=== PATIENT | female | born 1995 | race African-American/Black ===

== ENCOUNTER 2017-03-28 11:35 | Emergency (ER) | payer OTHER ==
[~2017-03-28] VITALS: Ht 152.4 cm; Wt 74.1 kg
[2017-03-28 11:37] VITALS: BP 125/73; PULSE 106; RESP 17; TEMP 99.2; O2SAT 99
[2017-03-28] MEDS ORDERED: IBUPROFEN 800 MG TAB PO ONE (12:00)
--- NOTE | 2017-03-28 12:25 | PD ---
HPI Chief Complaint: Respiratory Symptoms Time Seen by Provider: 12:15 Travel History International Travel<30 days: No Contact w/Intl Traveler<30days: No Traveled to known affect area: No History of Present Illness HPI Patient is a 21-year-old female presenting to emergency evaluation of body aches , cough, sneezing and runny stuffy nose. She states this morning when she was blowing her nose she noticed red mucus when she coughed. She also reports subjective fevers and chills, she denies any nausea, vomiting, chest pain, shortness of breath. She denies a significant past medical history. She has not taken anything to alleviate her symptoms. PFSH Past Medical History Cardiovascular Problems: Yes (congenital heart murmur ) Diminished Hearing: No Immunizations Current: Yes Tetanus Vaccination: < 5 Years Influenza Vaccination: No ?: Not LMP: 03/28/17 Menopausal: No : 1 Para: 0 Miscarriage: 1 Past Surgical History Surgical History: No Previous Surgery Social History Alcohol Use: Yes (ocassionally) Tobacco Use: No (pt denies) Substance Use: No (pt denies) Allergies-Medications (Allergen,Severity, Reaction): Coded Allergies: No Known Allergies (Verified , 03/28/17) Reported Meds & Prescriptions Reported Meds & Active Scripts Active No Active Prescriptions or Reported Medications Review of Systems Except as stated in HPI: all other systems reviewed are Neg General / Constitutional: Positive: Fever (subjective), Chills HENT: Positive: Sore Throat, Rhinitis, Rhinorrhea, Congestion Cardiovascular: No: Chest Pain or Discomfort Respiratory: Positive: Cough, Sneezing, No: Shortness of Breath, Wheezing, Pleuritic Pain Gastrointestinal: No: Nausea, Vomiting, Diarrhea, Abdominal Pain Musculoskeletal: Positive: Myalgias Physical Exam Narrative GENERAL: Well-developed, well-nourished, alert female. Resting comfortably in no acute distress. SKIN: Focused skin assessment warm/dry. HEAD: Atraumatic. Normocephalic. EYES: Pupils equal and round. No scleral icterus. No injection or drainage. ENT: No nasal bleeding or discharge. Mucous membranes pink and moist. Airway is patent NECK: Trachea midline. No JVD. CARDIOVASCULAR: Regular rate and rhythm. No murmur appreciated. RESPIRATORY: No accessory muscle use. Clear to auscultation. Breath sounds equal bilaterally. GASTROINTESTINAL: Abdomen soft, non-tender, nondistended. Hepatic and splenic margins not palpable. MUSCULOSKELETAL: No obvious deformities. No clubbing. No cyanosis. No edema. NEUROLOGICAL: Awake and alert. No obvious cranial nerve deficits. Motor grossly within normal limits. Normal speech. PSYCHIATRIC: Appropriate mood and affect; insight and judgment normal. Data Data Last Documented VS Vital Signs Date Time Temp Pulse Resp B/P Pulse Ox O2 Delivery O2 Flow Rate FiO2 03/28/17 11:53 98 18 100 Room Air 03/28/17 11:37 99.2 125/73 Orders Influenzae A/B Antigen (03/28/17 11:59) Ibuprofen (Motrin) (03/28/17 12:00) MDM Medical Decision Making Medical Screen Exam Complete: Yes Emergency Medical Condition: Yes Interpretation(s) Vital Signs Date Time Temp Pulse Resp B/P Pulse Ox O2 Delivery O2 Flow Rate FiO2 03/28/17 11:53 98 18 100 Room Air 03/28/17 11:37 99.2 106 17 125/73 99 Differential Diagnosis Influenza versus viral syndrome versus URI versus bronchitis versus other Narrative Course Patient's 21-year-old female presenting to emergency evaluation of cold symptoms that started approximately 24 hours ago. Patient appears nontoxic, she is mildly tachycardic with a slight elevation in her temperature. Patient will be given ibuprofen now, we'll obtain influenza screen. Influenza is negative Patient's heart rate was reassessed, at 98. Patient was encouraged to continue symptomatic management. She was advised to follow-up with her primary care provider Dr. Richardson. She was advised to return to emergency department immediately for any new or worsening symptoms. Patient verbalized understanding of instructions. Patient stable for discharge. Diagnosis Primary Impression: Viral URI Referrals: Melody Richardson MD 2 days Patient Instructions: General Instructions, Upper Respiratory Infection (ED) Additional Instructions: Follow-up with your primary doctor Continue symptom management Return to emergency department for any new or worsening symptoms Med/Other Pt SpecificInfo: Prescription(s) given Scripts Fluticasone Nasal [place] 50 Mcg/Act [id number] Mcg EACH NARE DAILY #1 BOTTLE Ref 0 50 mcg/spray Prov:Chantale Palacio 03/28/17 Ibuprofen 800 Mg [id number] Mg PO Q6HR PRN (PAIN) #40 TAB Ref 0 Prov:Chantale Palacio 03/28/17 Disposition: 01 DISCHARGE HOME Condition: Stable Chantale Palacio Mar 28, 2017 12:25
[2017-03-28] MEDS ORDERED: FLUT50SP EACH NARE (13:06)
[2017-03-28] MEDS ORDERED: IBUP800T23 PO (13:06)
[2017-03-28 13:08] VITALS: RESP 17
[2017-03-28 13:12] VITALS: BP 116/78; TEMP 97.8
== END 2017-03-28 13:13 | disposition home or self-care (01) ==
LOC: NEPD 11:35
DX: J06.9 Acute upper respiratory infection, unspecified (principal); B97.89 Other viral agents as the cause of diseases classified elsewhere; R00.0 Tachycardia, unspecified; R05 Cough; M79.1 Myalgia; R50.9 Fever, unspecified; Z86.79 Personal history of other diseases of the circulatory system
CPT/HCPCS: 87804; 99283

== ENCOUNTER 2017-05-18 17:17 | Emergency (ER) | payer OTHER ==
[~2017-05-18] VITALS: Ht 152.4 cm; Wt 77.3 kg
[~2017-05-18 17:17] MED LIST: FLUT50SP EACH NARE; IBUP800T23 PO
[2017-05-18 17:32] VITALS: BP 131/72; PULSE 100; RESP 16; TEMP 98; O2SAT 100
[2017-05-18] MEDS ORDERED: SODIUM CHLOR 0.9% 1000 ML INJ 1,000 ML IV ONE (18:45)
[2017-05-18] MEDS ORDERED: ONDANSETRON HCL 4 MG/2 ML VIAL IV PUSH ONE (18:45)
--- NOTE | 2017-05-18 18:52 | PD ---
HPI Chief Complaint: GI Complaint Time Seen by Provider: 18:42 Travel History International Travel<30 days: No Contact w/Intl Traveler<30days: No Traveled to known affect area: No History of Present Illness HPI This 21-year-old female says she's had loss of appetite for a few days. She's had some nausea and she has vomited once. She thinks she is due for her period but she says she doesn't pay a lot of attention to it. She has been once before and says she feels like this at that time. There has been no vaginal bleeding or abdominal pain [facility] Past Medical History Medical History: Denies Significant Hx Heart Rhythm Problems: Yes (HT MURMUR) Cardiovascular Problems: Yes (congenital heart murmur ) Diminished Hearing: No Immunizations Current: Yes Tetanus Vaccination: < 5 Years Influenza Vaccination: No ?: Unknown LMP: 04/26/17 Menopausal: No : 1 Para: 0 Miscarriage: 1 Past Surgical History Surgical History: No Previous Surgery Social History Alcohol Use: Yes (ocassionally) Tobacco Use: No (pt denies) Substance Use: No (pt denies) Allergies-Medications (Allergen,Severity, Reaction): Coded Allergies: No Known Allergies (Verified , 05/18/17) Reported Meds & Prescriptions Reported Meds & Active Scripts Active No Active Prescriptions or Reported Medications Review of Systems General / Constitutional: No: Fever, Chills Eyes: No: Diploplia HENT: No: Headaches Cardiovascular: No: Chest Pain or Discomfort, Palpitations Respiratory: No: Shortness of Breath Gastrointestinal: Positive: Nausea, Vomiting, Loss of Appetite Genitourinary: No: Urgency, Pelvic Pain Musculoskeletal: No: Myalgias Skin: No Rash, No Itching Neurologic: No: Weakness, Dizziness Endocrine: No: Heat Intolerance, Cold Intolerance Hematologic/Lymphatic: No: Easy Bruising Physical Exam Narrative GENERAL: Well-developed female SKIN: Focused skin assessment warm/dry. HEAD: Atraumatic. Normocephalic. EYES: Pupils equal and round. No scleral icterus. No injection or drainage. ENT: No nasal bleeding or discharge. Mucous membranes pink and moist. NECK: Trachea midline. No JVD. CARDIOVASCULAR: Regular rate and rhythm. No murmur appreciated. RESPIRATORY: No accessory muscle use. Clear to auscultation. Breath sounds equal bilaterally. GASTROINTESTINAL: Abdomen soft, non-tender, nondistended. Hepatic and splenic margins not palpable. MUSCULOSKELETAL: No obvious deformities. No clubbing. No cyanosis. No edema. NEUROLOGICAL: Awake and alert. No obvious cranial nerve deficits. Motor grossly within normal limits. Normal speech. PSYCHIATRIC: Appropriate mood and affect; insight and judgment normal. Data Data Last Documented VS Vital Signs Date Time Temp Pulse Resp B/P (MAP) Pulse Ox O2 Delivery O2 Flow Rate FiO2 05/18/17 17:32 98.0 100 16 131/72 (91) 100 Orders Orders Ed Urine Pregnancytest Poc (05/18/17 17:52) Complete Blood Count With Diff (05/18/17 18:44) Comprehensive Metabolic Panel (05/18/17 18:44) Urinalysis - C+S If Indicated (05/18/17 18:44) Beta Hcg (Quant/Titer) (05/18/17 18:44) Sodium Chlor 0.9% 1000 Ml Inj (Ns 1000 M (05/18/17 18:45) Ondansetron Inj (Zofran Inj) (05/18/17 18:45) Labs Laboratory Tests Test 05/18/17 18:51 White Blood Count 5.2 TH/MM3 Red Blood Count 4.84 MIL/MM3 Hemoglobin 13.6 GM/DL Hematocrit 42.0 % Mean Corpuscular Volume 86.7 FL Mean Corpuscular Hemoglobin 28.2 PG Mean Corpuscular Hemoglobin Concent 32.5 % Red Cell Distribution Width 12.8 % Platelet Count 334 TH/MM3 Mean Platelet Volume 7.6 FL Neutrophils (%) (Auto) 58.3 % Lymphocytes (%) (Auto) 28.6 % Monocytes (%) (Auto) 9.5 % Eosinophils (%) (Auto) 1.3 % Basophils (%) (Auto) 2.3 % Neutrophils # (Auto) 3.0 TH/MM3 Lymphocytes # (Auto) 1.5 TH/MM3 Monocytes # (Auto) 0.5 TH/MM3 Eosinophils # (Auto) 0.1 TH/MM3 Basophils # (Auto) 0.1 TH/MM3 CBC Comment DIFF FINAL Differential Comment Urine Color YELLOW Urine Turbidity SLIGHT Urine pH 6.0 Urine Specific [place] 1.033 Urine Protein NEG mg/dL Urine Glucose (UA) NEG mg/dL Urine Ketones NEG mg/dL Urine Occult Blood NEG Urine Nitrite NEG Urine Bilirubin NEG Urine Leukocyte Esterase NEG Urine WBC 3-5 /hpf Urine Squamous Epithelial Cells 0-5 /hpf Urine Amorphous Sediment FEW Urine Bacteria OCC /hpf Urine Mucus MANY /lpf Microscopic Urinalysis Comment CULT NOT INDICATED Blood Urea Nitrogen 10 MG/DL Creatinine 0.76 MG/DL Random Glucose 83 MG/DL Total Protein 7.8 GM/DL Albumin 3.8 GM/DL Calcium Level 8.9 MG/DL Alkaline Phosphatase 61 U/L Aspartate Amino Transf (AST/SGOT) 19 U/L Alanine Aminotransferase (ALT/SGPT) 21 U/L Total Bilirubin 0.4 MG/DL Sodium Level 137 MEQ/L Potassium Level 3.6 MEQ/L Chloride Level 104 MEQ/L Carbon Dioxide Level 27.2 MEQ/L Anion Gap 6 MEQ/L Estimat Glomerular Filtration Rate 116 ML/MIN Human Chorionic Gonadotropin, Quant LESS THAN 1 MIU/ML MDM Medical Decision Making Medical Screen Exam Complete: Yes Emergency Medical Condition: Yes Medical Record Reviewed: Yes Differential Diagnosis Differential includes viral syndrome, hepatitis, Narrative Course Urine test was negative. I was concerned this might be a very early so I ordered a blood test which is also negative. White count is 5000. Liver function tests are normal. Impression is nausea of uncertain etiology. This may be A viral syndrome Diagnosis Primary Impression: Viral syndrome Scripts Ondansetron Odt (Zofran Odt) 4 Mg Tab 4 MG SL Q6HR Y for Nausea/Vomiting, #10 TAB 0 Refills Prov: Aldo Heard MD 05/18/17 Disposition: 01 DISCHARGE HOME Condition: Stable Aldo Heard MD May 18, 2017 18:52
[2017-05-18 19:01] LABS: BASOPHIL # 0.1 TH/MM3 (0-0.2); BASOPHIL % 2.3 % (0.0-2.0); EOSINOPHIL # 0.1 TH/MM3 (0-0.4); EOSINOPHIL % 1.3 % (0.0-4.0); HEMO FLAGS DIFF FINAL; LYMPH % 28.6 % (9.0-44.0); LYMPHOCYTE # 1.5 TH/MM3 (1.0-4.8); MEAN CELL VOLUME 86.7 FL (80.0-100.0); MEAN CORPUSCULAR HEMOGLOBIN 28.2 PG (27.0-34.0); MEAN CORPUSCULAR HGB CONC 32.5 % (32.0-36.0); MONO % 9.5 % (0.0-8.0); NEUT % 58.3 % (16.0-70.0); PLATELET COUNT 334 TH/MM3 (150-450); RED BLOOD COUNT 4.84 MIL/MM3 (4.00-5.30); RED CELL DISTRIBUTION WIDTH 12.8 % (11.6-17.2); WHITE BLOOD COUNT 5.2 TH/MM3 (4.0-11.0)
[2017-05-18 19:02] LABS: BLOOD, URINE NEG (NEG); GLUCOSE,URINE NEG (NEG); KETONE, URINE NEG (NEG); NITRITE,URINE NEG (NEG)
[2017-05-18 19:09] LABS: URINE COLOR YELLOW (YELLW/STRAW)
[2017-05-18 19:10] LABS: CHLORIDE 104 MEQ/L (98-107); MUCUS URINE MANY /lpf (OCC); POTASSIUM 3.6 MEQ/L (3.5-5.1); SODIUM (NA) 137 MEQ/L (136-145); SQUAMOUS EPITHELIAL CELL URINE 0-5 /hpf (0-5)
[2017-05-18 19:13] LABS: ANION GAP 6 MEQ/L (5-15); BICARBONATE 27.2 MEQ/L (21.0-32.0)
[2017-05-18 19:14] LABS: BLOOD UREA NITROGEN 10 MG/DL (7-18)
[2017-05-18 19:16] LABS: ALT (GPT) 21 U/L (10-53)
[2017-05-18 19:17] LABS: AST (GOT) 19 U/L (15-37); GLOMERULAR FILTRATION RATE 116 ML/MIN (>89)
[2017-05-18 19:18] LABS: TOTAL BILIRUBIN ADULT 0.4 MG/DL (0.2-1.0)
[2017-05-18 19:19] LABS: ALKALINE PHOSPHATASE 61 U/L (45-117)
[2017-05-18 19:21] LABS: BACTERIA, URINE OCC /hpf; BETA HCG QUANT LESS THAN 1 MIU/ML (0-5)
[2017-05-18 19:22] LABS: COMMENT (UR) CULT NOT INDICATED; CULTURE IF INDICATED CULT NOT INDICATED
[2017-05-18] MEDS ORDERED: ZOFR4TAB3 SL ×2 (19:29→19:31)
[2017-05-18 19:42] VITALS: BP 127/74
== END 2017-05-18 19:47 | disposition home or self-care (01) ==
LOC: PHED 17:17
DX: B34.9 Viral infection, unspecified (principal)
CPT/HCPCS: 80053; 81001; 84702; 84703; 85025; 96361; 96374; 99284; J2405; J7030

== ENCOUNTER 2017-09-26 05:53 | Emergency (ER) | payer OTHER ==
[~2017-09-26] VITALS: Ht 162.6 cm; Wt 72.0 kg
[~2017-09-26 05:53] MED LIST changes: -FLUT50SP EACH NARE; -IBUP800T23 PO; +ZOFR4TAB3 SL
[2017-09-26 05:55] VITALS: BP 141/91; PULSE 120; RESP 16; TEMP 98.6; O2SAT 99
== END 2017-09-26 06:49 | disposition left against medical advice (07) ==
LOC: NEPC 05:53
DX: J00 Acute nasopharyngitis [common cold] (principal)
CPT/HCPCS: 99281